=== PATIENT | male | born 1990 | race Caucasian/White ===

== ENCOUNTER 2020-05-03 21:21 | Emergency (ER) | payer OTHER ==
[2020-05-03] MEDS ORDERED: XYLOCAINE VISC100 ML EXT (21:58)
== END 2020-05-03 22:20 | disposition home or self-care (01) ==
LOC: ER1 21:21
DX: K08.89 Other specified disorders of teeth and supporting structures (principal); K02.9 Dental caries, unspecified; Z20.822 Contact with and (suspected) exposure to COVID-19
CPT/HCPCS: 64400; 99282; U0003

== ENCOUNTER 2020-07-06 12:19 | Emergency (ER) | payer OTHER ==
[~2020-07-06 12:19] MED LIST: XYLOCAINE VISC100 ML EXT
[2020-07-06] MEDS ORDERED: PROAIR HFA8.5 GM INH (14:24)
== END 2020-07-06 14:35 | disposition home or self-care (01) ==
LOC: ER1 12:19
DX: J06.9 Acute upper respiratory infection, unspecified (principal); J40 Bronchitis, not specified as acute or chronic; B08.4 Enteroviral vesicular stomatitis with exanthem; F17.200 Nicotine dependence, unspecified, uncomplicated; H61.23 Impacted cerumen, bilateral; Z20.822 Contact with and (suspected) exposure to COVID-19; Z88.5 Allergy status to narcotic agent
CPT/HCPCS: 0240U; 71045; 87081; 87880; 99283

== ENCOUNTER 2020-07-09 19:17 | Emergency (ER) | payer OTHER ==
[~2020-07-09 19:17] MED LIST changes: +PROAIR HFA8.5 GM INH
[2020-07-09] MEDS ORDERED: LODINE CAP 300300 MG PO (20:40)
== END 2020-07-09 22:45 | disposition home or self-care (01) ==
LOC: ER1 19:17
DX: B08.4 Enteroviral vesicular stomatitis with exanthem (principal); B19.20 Unspecified viral hepatitis C without hepatic coma; F17.210 Nicotine dependence, cigarettes, uncomplicated
CPT/HCPCS: 96374; 99282; J1885

== ENCOUNTER 2020-10-31 08:57 | Emergency (ER) | payer OTHER ==
[~2020-10-31 08:57] MED LIST changes: +LODINE CAP 300300 MG PO
== END 2020-10-31 11:02 | disposition home or self-care (01) ==
LOC: ER1 08:57
DX: J06.9 Acute upper respiratory infection, unspecified (principal); Z20.822 Contact with and (suspected) exposure to COVID-19; F17.200 Nicotine dependence, unspecified, uncomplicated; Z88.5 Allergy status to narcotic agent
CPT/HCPCS: 0240U; 71045; 99285

== ENCOUNTER 2020-11-03 11:54 | Emergency (ER) | payer OTHER | END 2020-11-03 14:25 | disposition home or self-care (01) | LOC: ER1 11:54 | DX: J06.9 Acute upper respiratory infection, unspecified (principal); Z20.822 Contact with and (suspected) exposure to COVID-19; F17.200 Nicotine dependence, unspecified, uncomplicated | CPT/HCPCS: 99283; U0002 ==